=== PATIENT | female | born 1970 | race Hispanic/Latino ===

== ENCOUNTER 2018-06-05 16:17 | Emergency (ER) | payer MEDICAID ==
[2018-06-05 16:24] VITALS: BP 152/96; PULSE 71; RESP 16; TEMP 98.2; O2SAT 100
[2018-06-05] MEDS ORDERED: Sodium Chloride 0.9% 1,000 ML IV ONE (16:54)
--- NOTE | 2018-06-05 17:12 | ED PDOC ---
HPI: Back Time Seen by Provider: 06/05/18 16:44 Chief Complaint (Nursing): Back Pain Chief Complaint (Provider): Back Pain History Per: Patient History/Exam Limitations: no limitations Onset/Duration Of Symptoms: Days (x1) Current Symptoms Are (Timing): Still Present Additional Complaint(s): Patient is a 47 y/o female with a PMHx of gastritis who presents to the ED for evaluation of right-sided back pain, onset yesterday. Patient denies fever, vomiting, dysuria, hematuria, and any other urinary symptom. PCP: None Provided Past Medical History Reviewed: Historical Data, Nursing Documentation, Vital Signs Vital Signs: Last Vital Signs Temp 98.2 F 06/05/18 16:21 Pulse 71 06/05/18 16:21 Resp 16 06/05/18 16:21 BP 152/96 H 06/05/18 16:21 Pulse Ox 100 06/05/18 16:21 - Medical History PMH: Gastritis (18 years ago) - Surgical History Surgical History: No Surg Hx - Family History Family History: States: No Known Family Hx - Home Medications Home Medications: Ambulatory Orders Medication Instructions Recorded Sulfamethoxazole/Trimethoprim 1 tab PO BID #20 tab 06/05/18 [Bactrim DS 800 mg-160 mg] - Allergies Allergies/Adverse Reactions: Allergies Allergy/AdvReac Type Severity Reaction Status Date / Time No Known Allergies Allergy Verified 06/05/18 16:21 Review of Systems ROS Statement: Except As Marked, All Systems Reviewed And Found Negative Constitutional: Negative for: Fever Gastrointestinal: Negative for: Vomiting Genitourinary Female: Negative for: Dysuria, Frequency, Incontinence, Hematuria Musculoskeletal: Positive for: Back Pain (right-sided) Physical Exam - Reviewed Nursing Documentation Reviewed: Yes Vital Signs Reviewed: Yes - Physical Exam Appears: Positive for: Non-toxic, No Acute Distress Head Exam: Positive for: ATRAUMATIC, NORMAL INSPECTION, NORMOCEPHALIC Skin: Positive for: Normal Color, Warm, Dry Eye Exam: Positive for: EOMI, Normal appearance, PERRL Neck: Positive for: Normal, Painless ROM, Supple Cardiovascular/Chest: Positive for: Regular Rate, Rhythm. Negative for: Murmur Respiratory: Positive for: Normal Breath Sounds. Negative for: Respiratory Distress Gastrointestinal/Abdominal: Positive for: Normal Exam, Soft. Negative for: Tenderness, Guarding, Rebound, Other (Ravi's, McBurney's, Psoas, Vahe, and Rovsing Sign) Back: Positive for: R CVA Tenderness Extremity: Positive for: Normal ROM. Negative for: Pedal Edema, Deformity Neurologic/Psych: Positive for: Alert, Oriented. Negative for: Motor/Sensory Deficits - Laboratory Results Result Diagrams: 06/05/18 17:28 06/05/18 17:28 - ECG O2 Sat by Pulse Oximetry: 100 (RA) Pulse Ox Interpretation: Normal Medical Decision Making Medical Decision Making: Time: 1652 Impression: Right CVA Pain r/o Pyelonephritis and Kidney Stones Plan: CT Abd & Pelvis w/o Contrast CMP Lipase Troponin I Urine CBC IV Fluids Tylenol 650 mg PO UA Time: 1748 FINDINGS: LOWER THORAX: Unremarkable. LIVER: Unremarkable. No gross lesion or ductal dilatation. GALLBLADDER AND BILE DUCTS: Unremarkable. PANCREAS: Unremarkable. No gross lesion or ductal dilatation. SPLEEN: Unremarkable. ADRENALS: Unremarkable. No mass. KIDNEYS AND URETERS: No radiodense urolithiasis, perinephric fluid collection or obstructive uropathy is appreciate bilaterally. The bilateral ureters appear normal caliber overall. VASCULATURE: Nonaneurysmal abdominal aortic calcific atherosclerotic changes are identified. BOWEL: Stomach is distended with retained food and fluid and a bit of air. No bowel obstruction identified. Moderate fecal loading seen throughout the proximal and mid colon segments with the left hemicolon completely decompressed. Left colonic diverticular changes are concentrated at the sigmoid segment without acute reaction appreciable. APPENDIX: Negative appearing appendix. PERITONEUM: Unremarkable. No free fluid. No free air. LYMPH NODES: Unremarkable. No enlarged lymph nodes. BLADDER: Urinary bladder is decompressed in part with mural thickening difficult to evaluate or exclude. Clinically correlate for potential cystitis. No radiodense urolithiasis within the lumen of the urinary bladder. REPRODUCTIVE: Unremarkable. BONES: No acute fracture. OTHER FINDINGS: None. IMPRESSION: Nonacute left colonic diverticulosis. No radiodense urolithiasis, obstructive uropathy or perinephric reaction. Urinary bladder wall is difficult to evaluate due to decompression with mural thickening difficult to evaluate or exclude. Clinically correlate further. Cystitis not excluded. Pt is stable for discharge; will be treated for cystitis - Scribe Attestation: Documented by Zion Boo, acting as a scribe for MEGHAN Escalera. Provider Scribe Attestation: All medical record entries made by the Scribe were at my direction and personally dictated by me. I have reviewed the chart and agree that the record accurately reflects my personal performance of the history, physical exam, medical decision making, and the department course for this patient. I have also personally directed, reviewed, and agree with the discharge instructions and disposition. Disposition - Clinical Impression Clinical Impression: Cystitis - Patient ED Disposition Is Patient to be Admitted: No Doctor Will See Patient In The: Office Counseled Patient/Family Regarding: Diagnosis - Disposition Disposition: Routine/Home Disposition Time: 18:54 Condition: STABLE Prescriptions: Sulfamethoxazole/Trimethoprim [Bactrim DS 800 mg-160 mg] 1 tab PO BID #20 tab Instructions: Bladder Pain Syndrome (Interstitial Cystitis), Acute Cystitis (DC) Forms: [employer] ([place])
[2018-06-05 17:34] LABS: BASO % 0.5 % (0.0-2.0); EOS # 0.2 K/uL (0.0-0.7); EOS % 1.6 % (0.0-4.0); HEMOGLOBIN 13.3 g/dL (12.0-16.0); LYMPH % 21.1 % (20.0-40.0); MEAN CELL VOLUME 85.4 fl (81.0-99.0); MEAN CORPUSCULAR HGB CONC 32.8 g/dL (33.0-37.0); MEAN PLATELET VOLUME 9.1 fl (7.2-11.7); MONO # 0.8 K/uL (0.0-0.8); MONO % 8.7 % (0.0-10.0); NEUT # 6.6 K/uL (1.8-7.0); NEUT % 68.1 % (50.0-75.0); RBC 4.75 Mil/uL (3.80-5.20); RED CELL DISTRIBUTION WIDTH 14.9 % (11.5-14.5); WHITE BLOOD COUNT 9.7 K/uL (4.8-10.8)
[2018-06-05 17:45] LABS: ALB/GLOB RATIO 1.3 (1.0-2.1); ALBUMIN 4.4 g/dL (3.5-5.0); ALT/SGPT 27 U/L (9-52); AST/SGOT 22 U/L (14-36); BLOOD UREA NITROGEN 9 mg/dl (7-17); CALCIUM 9.9 mg/dL (8.4-10.2); GFR NON-AFRICAN AMERICAN > 60; LIPASE 75 U/L (23-300)
--- NOTE | 2018-06-05 17:52 | CT ---
Date of service: 06/05/2018 PROCEDURE: CT Abdomen and Pelvis without intravenous contrast HISTORY: r/o stones COMPARISON: None. TECHNIQUE: Helical CT of the abdomen and pelvis was performed without oral or intravenous contrast as per referring physician request. Coronal and sagittal reformats were generated.. Contrast dose: None Radiation dose: Total exam DLP = 717.9 mGy-cm. This CT exam was performed using one or more of the following dose reduction techniques: Automated exposure control, adjustment of the mA and/or kV according to patient size, and/or use of iterative reconstruction technique. FINDINGS: LOWER THORAX: Unremarkable. LIVER: Unremarkable. No gross lesion or ductal dilatation. GALLBLADDER AND BILE DUCTS: Unremarkable. PANCREAS: Unremarkable. No gross lesion or ductal dilatation. SPLEEN: Unremarkable. ADRENALS: Unremarkable. No mass. KIDNEYS AND URETERS: No radiodense urolithiasis, perinephric fluid collection or obstructive uropathy is appreciate bilaterally. The bilateral ureters appear normal caliber overall. VASCULATURE: Nonaneurysmal abdominal aortic calcific atherosclerotic changes are identified. BOWEL: Stomach is distended with retained food and fluid and a bit of air. No bowel obstruction identified. Moderate fecal loading seen throughout the proximal and mid colon segments with the left hemicolon completely decompressed. Left colonic diverticular changes are concentrated at the sigmoid segment without acute reaction appreciable. APPENDIX: Negative appearing appendix. PERITONEUM: Unremarkable. No free fluid. No free air. LYMPH NODES: Unremarkable. No enlarged lymph nodes. BLADDER: Urinary bladder is decompressed in part with mural thickening difficult to evaluate or exclude. Clinically correlate for potential cystitis. No radiodense urolithiasis within the lumen of the urinary bladder. REPRODUCTIVE: Unremarkable. BONES: No acute fracture. OTHER FINDINGS: None. IMPRESSION: Nonacute left colonic diverticulosis. No radiodense urolithiasis, obstructive uropathy or perinephric reaction. Urinary bladder wall is difficult to evaluate due to decompression with mural thickening difficult to evaluate or exclude. Clinically correlate further. Cystitis not excluded.
[2018-06-05 17:55] LABS: SQUAMOUS EPITHIAL 2 /hpf (0-5); URINE BACTERIA OCC (<OCC); URINE BILIRUBIN NEGATIVE (NEGATIVE); URINE BLOOD MODERATE (NEGATIVE); URINE CLARITY TURBID (Clear); URINE COLOR YELLOW (YELLOW); URINE GLUCOSE (UA) NEG (NEGATIVE); URINE LEUKOCYTE ESTERASE NEG Leu/uL (Negative); URINE PROTEIN NEGATIVE (NEGATIVE); URINE UROBILINOGEN 0.2-1.0 mg/dL (0.2-1.0)
[2018-06-05 17:56] LABS: URINE AMORPHOUS SEDIMENT MANY /ul (<OCC)
== END 2018-06-05 19:06 | disposition home or self-care (01) ==
LOC: H.ER 16:17
DX: N30.90 Cystitis, unspecified without hematuria (principal); K57.30 Diverticulosis of large intestine without perforation or abscess without bleeding
CPT/HCPCS: 74176; 80053; 81003; 81025; 83690; 84484; 85025; 96360; 99283; J7030